=== PATIENT | male | born 1975 | race Caucasian/White ===

== ENCOUNTER 2019-10-29 07:46 | Emergency (ER) | payer BC, OTHER ==
[~2019-10-29] VITALS: Ht 165.1 cm; Wt 97.5 kg
[~2019-10-29 07:46] MED LIST: CIPRO500 MG PO; FLAGYL500 MG PO; TUMS
[2019-10-29 08:44] LABS: BASOPHILS 0.8 % (0.0-2.0); EOSINOPHILS 2.5 % (0.0-3.0); HEMATOCRIT 48.1 % (42.0-52.0); HEMOGLOBIN 15.9 gm/dL (14.0-18.0); LYMPHOCYTES 24.6 % (24.0-44.0); MCH 30.7 pg (26.0-34.0); MCHC 33.1 g/dL (28.0-37.0); MCV 92.8 fL (80.0-100.0); MONOCYTES 11.2 % (1.0-8.0); PLATELET COUNT 346 thou/uL (150-400); POLYS 60.9 % (36.0-66.0); RBC 5.18 mil/uL (4.50-6.00); RDW 13.7 % (10.5-14.5); WBC 8.1 thou/uL (4.0-11.0)
[2019-10-29 08:49] LABS: ANION GAP 8 mmol/L (7-16); BUN 9 mg/dL (7-18); CALCIUM 9.2 mg/dL (8.5-10.1); CHLORIDE 102 mmol/L (98-107); CO2 29 mmol/L (21-32); CREATININE 0.8 mg/dL (0.7-1.3); GLUCOSE 102 mg/dL (74-106); POTASSIUM 4.6 mmol/L (3.5-5.1); SODIUM 139 mmol/L (136-145)
[2019-10-29 08:55] LABS: ALBUMIN 3.6 g/dL (3.4-5.0); DIRECT BILIRUBIN < 0.1 mg/dL (<0.1-0.2); SGOT 27 U/L (15-37); SGPT 46 U/L (30-65); TOTAL BILIRUBIN 0.4 mg/dL (<0.1-1.0); TOTAL PROTEIN 7.3 g/dL (6.4-8.2)
[2019-10-29 09:41] LABS: URINE BILIRUBIN NEGATIVE (Negative); URINE BLOOD NEGATIVE (Negative); URINE CLARITY CLEAR; URINE COLOR YELLOW; URINE GLUCOSE-RANDOM* NEGATIVE (Negative); URINE KETONES NEGATIVE (Negative); URINE LEUKOCYTES-REFLEX NEGATIVE (Negative); URINE NITRITE-REFLEX NEGATIVE (Negative); URINE PROTEIN (DIPSTICK) NEGATIVE (Negative); URINE UROBILINOGEN 0.2 E.U./dl (0.2-1.0)
[2019-10-29] MEDS ORDERED: CIPROFLOXACIN500 M1 PO (09:57)
[2019-10-29] MEDS ORDERED: FLAGYL500 M1 PO (09:57)
[2019-10-29 10:13] VITALS: BP 135/88
== END 2019-10-29 10:22 | disposition home or self-care (01) ==
LOC: ER 07:46
PROVIDERS: Emergency Medicine
DX: K57.92 Diverticulitis of intestine, part unspecified, without perforation or abscess without bleeding (principal)

== ENCOUNTER 2020-02-01 12:10 | Emergency (ER) | payer BC, OTHER ==
[~2020-02-01] VITALS: Ht 177.8 cm; Wt 98.0 kg
[~2020-02-01 12:10] MED LIST changes: +CIPROFLOXACIN500 M1 PO; +FLAGYL500 M1 PO
[2020-02-01] MEDS ORDERED: AMLODIPINE BESY10 MG PO (12:30)
[2020-02-01] MEDS ORDERED: MULTI VITAMIN1 EACH PO (12:31)
[2020-02-01] MEDS ORDERED: MELOXICAM15 MG PO (12:31)
[2020-02-01] MEDS ORDERED: HYOSCYAMINE0.125 MG PO (12:31)
[2020-02-01 12:48] LABS: ABSOLUTE NEUTROPHILS 6.1 thou/uL (1.4-8.2); BASOPHILS 0.6 % (0.0-2.0); EOSINOPHILS 2.5 % (0.0-3.0); HEMATOCRIT 47.9 % (42.0-52.0); HEMOGLOBIN 15.9 gm/dL (14.0-18.0); LYMPHOCYTES 26.5 % (24.0-44.0); MCH 30.7 pg (26.0-34.0); MCHC 33.2 g/dL (28.0-37.0); MCV 92.3 fL (80.0-100.0); MONOCYTES 9.9 % (1.0-8.0); POLYS 60.5 % (36.0-66.0); RBC 5.19 mil/uL (4.50-6.00); RDW 14.2 % (10.5-14.5); WBC 11.1 thou/uL (4.0-11.0)
[2020-02-01 13:04] LABS: ANION GAP 7 mmol/L (7-16); BUN 11 mg/dL (7-18); CHLORIDE 102 mmol/L (98-107); CO2 26 mmol/L (21-32); CREATININE 0.8 mg/dL (0.7-1.3); GLUCOSE 93 mg/dL (74-106); SODIUM 135 mmol/L (136-145)
[2020-02-01 13:05] LABS: POTASSIUM 4.8 mmol/L (3.5-5.1)
[2020-02-01 13:07] LABS: PLATELET COUNT 334 thou/uL (150-400)
[2020-02-01 13:14] LABS: ALBUMIN 4.3 g/dL (3.4-5.0); SGOT 53 U/L (15-37); SGPT 73 U/L (30-65); TOTAL BILIRUBIN 0.6 mg/dL (0.2-1.0); TOTAL PROTEIN 8.1 g/dL (6.4-8.2); TROPONIN-I <0.06 ng/mL (<0.06)
[2020-02-01 14:34] VITALS: BP 126/86
--- NOTE | 2020-02-02 08:21 | EKG ---
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 : 1975 Requested By: [place] Order Number: [id number] MD: Delfin Hale Measurements Intervals [place] Rate: 73 P: 4 CO: 147 QRS: -19 QRSD: 99 T: 22 QT: 402 QTc: 443 Interpretive Statements Sinus rhythm RSR' in V1 or V2, probably normal variant Left ventricular hypertrophy Inferior infarct, old Compared to ECG 07/29/1999 16:55:05 Myocardial infarct finding now present Electronically Signed On 02-02-2020 8:19:20 CDT by Delfin Hale [email or web address] <ELECTRONICALLY SIGNED> By: Delfin Hale MD, [facility] 02/02/20 0819 1219 1219 Delfin Hale MD, [facility] /EPI
== END 2020-02-01 14:34 | disposition home or self-care (01) ==
LOC: ER 12:10
PROVIDERS: Emergency Medicine
DX: R07.81 Pleurodynia (principal); R74.0 Nonspecific elevation of levels of transaminase and lactic acid dehydrogenase [LDH]; Z79.899 Other long term (current) drug therapy; Z90.89 Acquired absence of other organs